=== PATIENT | male | born 1995 | race Caucasian/White ===

== ENCOUNTER 2024-07-09 00:29 | Emergency (ER) | payer OTHER ==
[~2024-07-09] VITALS: Ht 177.8 cm; Wt 90.7 kg
[2024-07-09] MEDS ORDERED: ceFAZolin sodium 1 GM VIAL IM ONE (00:50)
[2024-07-09] MEDS ORDERED: Tdap Vaccine 0.5 ML SYR (Adult Vaccine) IM ONE (00:50)
[2024-07-09] MEDS ORDERED: Water, Sterile 10 ML VIAL ONE (01:10)
[2024-07-09] MEDS ORDERED: CEPHALEXIN500 M1 PO (02:38)
== END 2024-07-09 02:44 | disposition home or self-care (01) ==
LOC: ED 00:29
DX: S61.210A Laceration without foreign body of right index finger without damage to nail, initial encounter (principal); V89.9XXA Person injured in unspecified vehicle accident, initial encounter; Y93.89 Activity, other specified; Y92.410 Unspecified street and highway as the place of occurrence of the external cause; Y99.8 Other external cause status